=== PATIENT | male | born 1995 | race African-American/Black ===

== ENCOUNTER 2022-08-16 02:02 | Emergency (ER) | payer SELFPAY ==
[~2022-08-16] VITALS: Ht 167.6 cm; Wt 68.0 kg
--- NOTE | 2022-08-16 02:03 | NUR ---
PT OFFLOADED TO MARZENA
[2022-08-16 02:16] VITALS: BP 110/81
--- NOTE | 2022-08-16 02:19 | NUR ---
TO LOBBY A/W BED AMBULATORY
[2022-08-16] MEDS ORDERED: KETOROLAC 60 MG/2 ML VIAL IM ONE (02:20)
--- NOTE | 2022-08-16 02:25 | NUR ---
SEEN AND EXAMINED BY KIZZY
[2022-08-16] MEDS ORDERED: IBUPROFEN 600 MG TAB PO ONE (02:50)
[2022-08-16] MEDS ORDERED: NAPR-54 PO (03:36)
[2022-08-16 03:40] VITALS: BP 110/81
== END 2022-08-16 03:40 | disposition home or self-care (01) ==
LOC: MED 02:02
DX: G44.209 Tension-type headache, unspecified, not intractable (principal)
CPT/HCPCS: 99282; J1885

== ENCOUNTER 2023-02-09 04:45 | Emergency (ER) | payer OTHER ==
[~2023-02-09] VITALS: Ht 167.6 cm; Wt 72.6 kg
[~2023-02-09 04:45] MED LIST: NAPR-54 PO
[2023-02-09 05:03] VITALS: BP 138/83; PULSE 76; RESP 20; TEMP 97.2; O2SAT 98
--- NOTE | 2023-02-09 07:26 | NUR ---
Patient discharged with v/s stable. Written and verbal after care instructions given and explained. Patient verbalized understanding. Ambulatory with steady gait. All questions addressed prior to discharge. Advised to follow up with PMD.
--- NOTE | 2023-02-09 07:26 | NUR ---
Patient given written and verbal discharge instructions and verbalizes understanding. Given copies of tests performed during visit. Patient is awake, alert and oriented. Ambulatory with steady gait. Refuses offer of residential placement. Given list of available shelters in surrounding areas.
== END 2023-02-09 07:26 | disposition home or self-care (01) ==
LOC: MED 04:45
DX: M25.571 Pain in right ankle and joints of right foot (principal); Z79.899 Other long term (current) drug therapy
CPT/HCPCS: 99281

== ENCOUNTER 2023-06-11 00:35 | Emergency (ER) | payer OTHER ==
[~2023-06-11] VITALS: Ht 165.1 cm; Wt 68.0 kg
[2023-06-11 00:49] VITALS: BP 135/79; PULSE 89; RESP 17; TEMP 97.8; O2SAT 98
== END 2023-06-11 02:47 | disposition left against medical advice (07) ==
LOC: MED 00:35
DX: R11.10 Vomiting, unspecified (principal); Z53.21 Procedure and treatment not carried out due to patient leaving prior to being seen by health care provider
CPT/HCPCS: 99281

== ENCOUNTER 2023-07-31 04:23 | Emergency (ER) | payer OTHER ==
[~2023-07-31] VITALS: Ht 165.1 cm; Wt 63.5 kg
[2023-07-31 05:30] VITALS: BP 132/87; PULSE 79; RESP 15; TEMP 99; O2SAT 100
== END 2023-07-31 10:25 | disposition left against medical advice (07) ==
LOC: MED 04:23
DX: K92.1 Melena (principal); J45.909 Unspecified asthma, uncomplicated; Z79.899 Other long term (current) drug therapy
CPT/HCPCS: 99281